=== PATIENT | female | born 1945 | race Caucasian/White ===

== ENCOUNTER 2016-11-22 18:23 | Emergency (ER) | payer OTHER ==
[2016-11-22 20:45] LABS: BILIRUBIN NEGATIVE (NEGATIVE); BLOOD TRACE-INTACT Ery/uL (NEGATIVE); CLARITY CLEAR (CLEAR); COLOR YELLOW (YELLOW); GLUCOSE (U) NORMAL (NORMAL); KETONE (U) NEGATIVE (NEGATIVE); LEUKOCYTES 2+ Leu/uL (NEGATIVE); NITRITE POSITIVE (NEGATIVE); PROTEIN TRACE (LOW) mg/dL (NEGATIVE); SPECIFIC GRAVITY 1.015 (1.001-1.030); UROBILINOGEN 0.2 mg/dL (0.2-1.0)
[2016-11-22 20:52] LABS: BACTERIA 4+
[2016-11-22 20:53] LABS: BASOPHIL 0.1 % (0-2); EOSINOPHIL 0.1 % (0-7); HCT 33.9 % (37.0-47.0); HGB 11.8 g/dl (12.5-16.0); LYMPHOCYTE 11.7 % (15-48); MCH 31.8 pg (25.0-31.0); MCHC 34.8 g/dL (32.0-36.0); MCV 91.4 fL (78.0-100.0); MONOCYTE 5.2 % (0-12); MPV 9.8 fL (6.0-9.5); NEUTROPHIL 82.9 % (41-80); PLT 269 K/uL (150-400); RBC 3.71 M/uL (4.20-5.40); RDW 12.3 % (11.5-14.0); WBC 8.4 K/uL (4.0-10.5)
[2016-11-22 20:54] LABS: ALBUMIN 4.1 g/dL (3.4-4.8); BILIRUBIN - TOTAL 0.5 mg/dL (0.1-1.0); CREATININE 0.8 mg/dL (0.5-1.0); GLOBULIN (CALCULATION) 2.6 g/dL (2.2-4.2); POTASSIUM 3.9 mmol/L (3.5-5.1); TOTAL PROTEIN 6.7 g/dL (6.4-8.3)
== END 2016-11-22 22:35 | disposition home or self-care (01) ==
LOC: FER 18:23
PROVIDERS: Internal Medicine
DX: N39.0 Urinary tract infection, site not specified (principal); M54.9 Dorsalgia, unspecified; G89.29 Other chronic pain; Z88.5 Allergy status to narcotic agent; Z79.1 Long term (current) use of non-steroidal anti-inflammatories (NSAID)
CPT/HCPCS: 36415; 72072; 72100; 80053; 81001; 82150; 83690; 85025; 87076; 87088; 87186